=== PATIENT | male | born 1945 | race Caucasian/White ===

== ENCOUNTER 2020-09-24 18:54 | Inpatient (IN) ==
[2020-09-24 19:57] LABS: ABS Eosinophils 0.1 10^3/ul (0-0.6); ABS Lymphocytes 0.2 10^3/ul (1.0-4.8); ABS Monocytes 0.3 10^3/ul (0-0.8); Eosinophil % 8.7 %; Hematocrit 20 % (42-52); Hemoglobin 6.4 g/dL (14.0-18.0); Lymphocyte % 27.3 %; Mean Corpuscular HGB Conc 31 g/dL (31-36); Mean Corpuscular Hemoglobin 22 pg (27-31); Mean Corpuscular Volume 72 fL (80-94); Mean Platelet Volume 8.3 fL (7.4-10.4); Platelet Count 158 10^3/uL (150-450); Red Blood Count 2.85 10^6 /uL (4.18-5.48); Red Cell Distribution Width 25 % (10-15); White Blood Count 0.6 10^3/uL (3.5-10.8)
[2020-09-24 20:07] LABS: Activated Partial Thrombo Time 33.1 seconds (26.0-38.0); INR 1.12 (0.86-1.15)
[2020-09-24 20:08] LABS: ALT 16 U/L (7-52); AST 10 U/L (13-39); Albumin 3.3 g/dL (3.2-5.2); Albumin/Globulin Ratio 1.2 (1-3); Alkaline Phosphatase 77 U/L (35-149); Anion Gap 7 mmol/L (2-11); Blood Urea Nitrogen 42 mg/dL (6-24); C Reactive Protein 139.11 mg/L (<8.01); CO2 Carbon Dioxide 33 mmol/L (22-32); Calcium 8.4 mg/dL (8.6-10.3); Chloride 99 mmol/L (101-111); Creatine Kinase 13 U/L (10-223); EGFR African American 44.7 (>60); Globulin 2.8 g/dL (2-4); Glucose 144 mg/dL (70-100); Potassium 3.9 mmol/L (3.5-5.0); Sodium 139 mmol/L (135-145); Total Protein 6.1 g/dL (6.4-8.9)
[2020-09-24 20:18] LABS: Troponin I 0.03 ng/mL (<0.03)
[2020-09-24] MEDS ORDERED: Iodixanol (CONTRAST) 320 MG/ML 100 ML SDV IV ONE (20:47)
[2020-09-24 21:02] LABS: Hypochromasia 2+; Microcytosis 1+
[2020-09-24 21:03] LABS: Basophilic Stippling 2+
[2020-09-24 21:04] LABS: Polychromasia 2+
[2020-09-24 21:05] LABS: Nucleated Red Blood Cells % 2.6
[2020-09-24] MEDS ORDERED: Pantoprazole VIAL 40 MG VIAL IV ONE (22:07)
[2020-09-24] MEDS ORDERED: Linezolid 600 MG IVPREMIX(*) 600 MG/300 ML BAG IVPB SCH (23:45)
[2020-09-24] MEDS ORDERED: Cefepime 2 GM in Dextrose 2 GM/50 ML BAG IV SCH (23:45)
[2020-09-24] MEDS ORDERED: Furosemide 20 mg/2 ml IV VIAL IV SLOW PU ONE (23:47)
[2020-09-25] MEDS ORDERED: Ondansetron 4 mg VIAL 2 MG/ML 2 ml VIAL IV PRN (00:35)
[2020-09-25] MEDS ORDERED: Saline NASAL SPRAY 0.65% BTL BOTH NARES PRN (00:50)
[2020-09-25] MEDS ORDERED: Cefepime 2 GM IV - ED ONCE IV ONE (02:00)
[2020-09-25] MEDS ORDERED: Dextrose 50% Syringe 50 ml 25 GM/50 ML SYRINGE IV PUSH PRN (02:10)
[2020-09-25 03:46] LABS: Total Iron Binding Capacity 316 mcg/dL (250-450); Transferrin 226 mg/dL (203-362)
[2020-09-25 04:02] LABS: % Iron Saturation 6 % (15-55); Iron < 20 ug/dL (50-212); Unsaturated Iron Binding < 301 ug/dL
[2020-09-25 04:31] LABS: Ferritin 277.9 ng/mL (24-336)
[2020-09-25 04:59] LABS: Urine Appearance Cloudy; Urine Bilirubin Negative (Negative); Urine Blood 1+ (Negative); Urine Color Yellow; Urine Glucose Negative (Negative); Urine Ketones Negative (Negative); Urine Nitrite Negative (Negative); Urine Protein 1+(30 mg/dL) (Negative); Urine Specific Gravity 1.008 (1.002-1.030); Urine Urobilinogen Negative (Negative)
[2020-09-25 05:03] LABS: Hematocrit 22 % (42-52); Mean Corpuscular HGB Conc 32 g/dL (31-36); Mean Corpuscular Hemoglobin 23 pg (27-31); Mean Corpuscular Volume 73 fL (80-94); Platelet Count 166 10^3/uL (150-450); Red Blood Count 3.05 10^6 /uL (4.18-5.48); Red Cell Distribution Width 26 % (10-15); White Blood Count 0.7 10^3/uL (3.5-10.8)
[2020-09-25 05:10] LABS: Urine Bacteria Absent (Absent); Urine Red Blood Cell Trace(0-2/hpf) (Absent); Urine Squamous Epithelial Cell Present (Absent); Urine White Blood Cell 2+(11-20/hpf) (Absent)
[2020-09-25 05:27] LABS: ABS Lymphocytes 0.1 10^3/ul (1.0-4.8); Calcium 8.4 mg/dL (8.6-10.3); EGFR African American 50.2 (>60); EGFR Non-African American 41.5 (>60); Magnesium 1.8 mg/dL (1.9-2.7); Potassium 3.9 mmol/L (3.5-5.0)
[2020-09-25 05:28] LABS: ABS Eosinophils 0.1 10^3/ul (0-0.6)
[2020-09-25 05:29] LABS: Eosinophil % 9.7 %; Lymphocyte % 21.2 %
[2020-09-25 05:30] LABS: ABS Monocytes 0.4 10^3/ul (0-0.8)
[2020-09-25 05:31] LABS: ABS Neutrophils 0.1 10^3/ul (1.5-7.7)
[2020-09-25] MEDS ORDERED: Magnesium Sulfate IV 1GM/100ML 1 GM/100 ML BAG IV ONE (06:55)
[2020-09-25 08:28] LABS: Phosphorus 4.1 mg/dL (2.5-5.0)
[2020-09-25] MEDS: Tiotropium Brom/Olodaterol MDI INH SCH (08:32)
[2020-09-25] MEDS: Albuterol HFA INHALER 8 gm MDI INH SCH ×2 (08:41→23:12)
[2020-09-25] MEDS ORDERED: Iodixanol (CONTRAST) 320 MG/ML 100 ML SDV IV SCH (08:46)
[2020-09-25] MEDS: Insulin GLARGINE 100 un/ml 10 ml VIAL SUBCUT SCH (09:25)
[2020-09-25] MEDS: Polyethylene Glycol 3350 17 GM PACKET PO SCH (09:25)
[2020-09-25] MEDS: Isosorbide Mononit ER 60mg TAB PO SCH (09:25)
[2020-09-25] MEDS: Cefepime 2 GM in Dextrose 2 GM/50 ML BAG IV SCH (14:13)
[2020-09-25] MEDS: Linezolid 600 MG IVPREMIX(*) 600 MG/300 ML BAG IVPB SCH (15:44)
[2020-09-25 15:49] LABS: Troponin I 0.02 ng/mL (<0.03)
[2020-09-26] MEDS: Linezolid 600 MG IVPREMIX(*) 600 MG/300 ML BAG IVPB SCH ×2 (01:20→15:10)
[2020-09-26] MEDS: Cefepime 2 GM in Dextrose 2 GM/50 ML BAG IV SCH ×2 (02:26→14:26)
[2020-09-26 06:08] LABS: Hematocrit 21 % (42-52); Hemoglobin 6.6 g/dL (14.0-18.0); Mean Corpuscular HGB Conc 31 g/dL (31-36); Mean Corpuscular Hemoglobin 23 pg (27-31); Mean Corpuscular Volume 74 fL (80-94); Mean Platelet Volume 7.8 fL (7.4-10.4); Platelet Count 192 10^3/uL (150-450); Red Blood Count 2.86 10^6 /uL (4.18-5.48); Red Cell Distribution Width 26 % (10-15); White Blood Count 1.6 10^3/uL (3.5-10.8)
[2020-09-26 06:22] LABS: Calcium 8.4 mg/dL (8.6-10.3); EGFR African American 50.5 (>60); EGFR Non-African American 41.7 (>60); Magnesium 2.1 mg/dL (1.9-2.7); Phosphorus 3.7 mg/dL (2.5-5.0); Potassium 4.3 mmol/L (3.5-5.0)
[2020-09-26] MEDS: Albuterol HFA INHALER 8 gm MDI INH SCH ×2 (07:29→21:52)
[2020-09-26] MEDS: Tiotropium Brom/Olodaterol MDI INH SCH (07:30)
[2020-09-26] MEDS: Isosorbide Mononit ER 60mg TAB PO SCH (09:45)
[2020-09-26] MEDS: Polyethylene Glycol 3350 17 GM PACKET PO SCH (09:45)
[2020-09-26] MEDS: Insulin GLARGINE 100 un/ml 10 ml VIAL SUBCUT SCH (09:45)
[2020-09-26] MEDS ORDERED: Furosemide 40 mg/4 ml IV VIAL IV ONE (10:21)
[2020-09-27] MEDS: Cefepime 2 GM in Dextrose 2 GM/50 ML BAG IV SCH ×2 (02:50→13:09)
[2020-09-27] MEDS: Linezolid 600 MG IVPREMIX(*) 600 MG/300 ML BAG IVPB SCH ×2 (03:30→13:07)
[2020-09-27] MEDS: Albuterol HFA INHALER 8 gm MDI INH SCH ×2 (07:12→19:53)
[2020-09-27] MEDS: Tiotropium Brom/Olodaterol MDI INH SCH (07:12)
[2020-09-27 07:54] LABS: Hematocrit 22 % (42-52); Hemoglobin 7.1 g/dL (14.0-18.0); Mean Corpuscular HGB Conc 32 g/dL (31-36); Mean Corpuscular Hemoglobin 24 pg (27-31); Mean Corpuscular Volume 74 fL (80-94); Mean Platelet Volume 8.4 fL (7.4-10.4); Platelet Count 243 10^3/uL (150-450); Red Blood Count 2.97 10^6 /uL (4.18-5.48); Red Cell Distribution Width 27 % (10-15); White Blood Count 3.4 10^3/uL (3.5-10.8)
[2020-09-27 08:03] LABS: Calcium 8.4 mg/dL (8.6-10.3); EGFR African American 46.2 (>60); EGFR Non-African American 38.2 (>60); Magnesium 2.1 mg/dL (1.9-2.7)
[2020-09-27 08:17] LABS: ABS Eosinophils 0.1 10^3/ul (0-0.6); ABS Lymphocytes 0.3 10^3/ul (1.0-4.8); ABS Monocytes 0.9 10^3/ul (0-0.8); Anisocytosis 1+; Basophilic Stippling 1+; Eosinophil % 3.2 %; Lymphocyte % 9.1 %; Microcytosis 1+; Nucleated Red Blood Cells % 0.4; Polychromasia 1+
[2020-09-27] MEDS: Polyethylene Glycol 3350 17 GM PACKET PO SCH (09:03)
[2020-09-27] MEDS: Isosorbide Mononit ER 60mg TAB PO SCH (09:04)
[2020-09-27] MEDS: Insulin GLARGINE 100 un/ml 10 ml VIAL SUBCUT SCH (09:46)
[2020-09-27] MEDS ORDERED: Furosemide 40 mg/4 ml IV VIAL IV ONE (14:30)
[2020-09-27] MEDS ORDERED: Furosemide 20 mg/2 ml IV VIAL IV ONE (19:00)
[2020-09-28] MEDS: Linezolid 600 MG IVPREMIX(*) 600 MG/300 ML BAG IVPB SCH ×2 (02:53→13:14)
[2020-09-28] MEDS: Cefepime 2 GM in Dextrose 2 GM/50 ML BAG IV SCH (02:53)
[2020-09-28 06:06] LABS: Hematocrit 26 % (42-52); Hemoglobin 8.3 g/dL (14.0-18.0); Mean Corpuscular HGB Conc 32 g/dL (31-36); Mean Corpuscular Hemoglobin 24 pg (27-31); Mean Corpuscular Volume 75 fL (80-94); Mean Platelet Volume 7.5 fL (7.4-10.4); Platelet Count 282 10^3/uL (150-450); Red Blood Count 3.43 10^6 /uL (4.18-5.48); Red Cell Distribution Width 27 % (10-15); White Blood Count 6.9 10^3/uL (3.5-10.8)
[2020-09-28 06:24] LABS: Calcium 8.5 mg/dL (8.6-10.3); EGFR African American 41.8 (>60); EGFR Non-African American 34.5 (>60); Phosphorus 3.8 mg/dL (2.5-5.0); Potassium 4.5 mmol/L (3.5-5.0)
[2020-09-28 06:33] LABS: ABS Eosinophils 0.1 10^3/ul (0-0.6); ABS Lymphocytes 0.3 10^3/ul (1.0-4.8); ABS Monocytes 1.5 10^3/ul (0-0.8); Eosinophil % 1.8 %; Nucleated Red Blood Cells % 0.2
[2020-09-28] MEDS: Albuterol HFA INHALER 8 gm MDI INH SCH ×2 (07:53→19:52)
[2020-09-28] MEDS: Tiotropium Brom/Olodaterol MDI INH SCH (07:54)
[2020-09-28] MEDS ORDERED: Furosemide 40 mg/4 ml IV VIAL IV ONE ×2 (08:53→17:10)
[2020-09-28] MEDS: Isosorbide Mononit ER 60mg TAB PO SCH (09:23)
[2020-09-28] MEDS: Polyethylene Glycol 3350 17 GM PACKET PO SCH (09:24)
[2020-09-28] MEDS: Insulin GLARGINE 100 un/ml 10 ml VIAL SUBCUT SCH (09:25)
[2020-09-28] MEDS: Meropenem 1 GM PREMIX(*) 1 GM/50 ML BAG IV SCH ×2 (12:17→20:52)
[2020-09-28] MEDS ORDERED: Enoxaparin 40 MG/0.4 ML SYR SUBCUT SCH (18:00)
[2020-09-28] MEDS ORDERED: Morphine 2 MG/ML SYRINGE IV ONE (23:32)
[2020-09-28] MEDS ORDERED: Morphine 2 MG/ML SYRINGE ONE (23:34)
[2020-09-29] MEDS: Linezolid 600 MG IVPREMIX(*) 600 MG/300 ML BAG IVPB SCH (03:05)
[2020-09-29] MEDS: Meropenem 1 GM PREMIX(*) 1 GM/50 ML BAG IV SCH (04:49)
[2020-09-29] MEDS: Morphine 2 MG/ML SYRINGE IV PRN ×2 (04:49→11:16)
[2020-09-29 05:09] LABS: Hematocrit 26 % (42-52); Hemoglobin 8.3 g/dL (14.0-18.0); Mean Corpuscular HGB Conc 32 g/dL (31-36); Mean Corpuscular Hemoglobin 24 pg (27-31); Mean Corpuscular Volume 75 fL (80-94); Mean Platelet Volume 7.5 fL (7.4-10.4); Platelet Count 308 10^3/uL (150-450); Red Blood Count 3.39 10^6 /uL (4.18-5.48); Red Cell Distribution Width 26 % (10-15); White Blood Count 9.1 10^3/uL (3.5-10.8)
[2020-09-29 05:25] LABS: ABS Eosinophils 0.1 10^3/ul (0-0.6); ABS Lymphocytes 0.4 10^3/ul (1.0-4.8); ABS Monocytes 1.5 10^3/ul (0-0.8); ABS Neutrophils 7.1 10^3/ul (1.5-7.7); Nucleated Red Blood Cells % 0.1
[2020-09-29 05:29] LABS: Potassium 4.6 mmol/L (3.5-5.0)
[2020-09-29 05:30] LABS: Calcium 8.6 mg/dL (8.6-10.3); EGFR African American 42.5 (>60); EGFR Non-African American 35.2 (>60)
[2020-09-29] MEDS: Isosorbide Mononit ER 60mg TAB PO SCH (09:19)
[2020-09-29] MEDS: Polyethylene Glycol 3350 17 GM PACKET PO SCH (09:20)
[2020-09-29] MEDS: Insulin GLARGINE 100 un/ml 10 ml VIAL SUBCUT SCH (09:26)
[2020-09-29] MEDS: Tiotropium Brom/Olodaterol MDI INH SCH (09:31)
[2020-09-29] MEDS: Albuterol HFA INHALER 8 gm MDI INH SCH (09:31)
[2020-09-29] MEDS ORDERED: Morphine 10 MG/ML VIAL (1 ml) IV ONE (12:10)
[2020-09-29] MEDS ORDERED: LORazepam 2 mg VIAL 1 ml IV PUSH PRN (12:10)
[2020-09-29] MEDS ORDERED: Lorazepam PYXIS KEY PRN (12:10)
[2020-09-29] MEDS ORDERED: LORazepam 2 mg VIAL 1 ml IV PUSH ONE (12:10)
[2020-09-29] MEDS ORDERED: LORazepam VIAL (for drip) 100 MG in D5W 100 ml BAG 50 ML IV SCH (13:00)
[2020-09-29] MEDS ORDERED: Morphine PCA 5 MG/ML Titrate per Protocol PCA SCH (13:00)
[2020-09-29] MEDS ORDERED: Lorazepam PYXIS KEY ONE (13:43)
[2020-09-29 14:58] VITALS: BP 51/38
== END 2020-09-29 16:42 | disposition expired | DRG 871 ==
LOC: ED 18:54 → ICU 09-25 00:35
PROVIDERS: ADMIT Student in an Organized Health Care Education/Training Program; ATTEND Internal Medicine Critical Care Medicine